=== PATIENT | male | born 1990 | race Caucasian/White ===

== ENCOUNTER 2019-01-02 07:29 | Emergency (ER) | payer BC, SELFPAY ==
[2019-01-02] MEDS ORDERED: Ondansetron ODT 4 MG TAB ONE (07:59)
== END 2019-01-02 08:06 | disposition home or self-care (01) ==
LOC: MADERS 07:29
DX: K52.9 Noninfective gastroenteritis and colitis, unspecified (principal); R11.2 Nausea with vomiting, unspecified; F17.210 Nicotine dependence, cigarettes, uncomplicated; F17.220 Nicotine dependence, chewing tobacco, uncomplicated; Z71.6 Tobacco abuse counseling
CPT/HCPCS: 99406; Q0162

== ENCOUNTER 2019-03-12 18:54 | Emergency (ER) | payer SELFPAY ==
[2019-03-12] MEDS ORDERED: Bacitracin Zinc 1 Packet ONE (19:30)
[2019-03-12] MEDS ORDERED: Adacel (T-DAP) 0.5 ML SYRINGE ONE (19:30)
== END 2019-03-12 20:00 | disposition home or self-care (01) ==
LOC: MADERS 18:54
DX: S61.212A Laceration without foreign body of right middle finger without damage to nail, initial encounter (principal); Z23 Encounter for immunization; F17.220 Nicotine dependence, chewing tobacco, uncomplicated; W26.8XXA Contact with other sharp object(s), not elsewhere classified, initial encounter; Y92.69 Other specified industrial and construction area as the place of occurrence of the external cause
CPT/HCPCS: 12001; 90471; 90715

== ENCOUNTER 2019-06-30 07:36 | Emergency (ER) | payer SELFPAY ==
[2019-06-30] MEDS ORDERED: Lidocaine Viscous Sol 2% 15 ml UD Cup ONE (08:28)
[2019-06-30] MEDS ORDERED: Mag-Al Plus 1200 MG/1200 MG/120 MG/30 ML UDCUP ONE (08:28)
[2019-06-30 08:53] LABS: #Eosinphils 0.3 thou/uL (0.0-0.7); #Lymphocytes 1.6 thou/uL (1.20-3.40); #Monocytes 0.6 thou/uL (0.11-0.59); %Basophils 0.7 % (0.0-1.0); %Eosinophils 4.4 % (0.0-10.0); %Monocytes 9.4 % (0.0-10.0); %Neutrophils 61.5 % (42.0-75.0); Hemoglobin 14.9 g/dL (14.0-18.0); Mean Corpuscular HGB CONC 33.2 g/dL (32.0-36.0); Mean Corpuscular Hemoglobin 28.8 pg (27.0-31.0); Mean Corpuscular Volume 86.7 fL (78.0-98.0); Mean Platelet Volume 6.8 fL (7.4-10.4); Platelet Count 167 thou/uL (130-400); RBC Distribution Width 11.8 % (11.5-14.5); Red Blood Cell (RBC) Count 5.17 mill/uL (4.70-6.10); White Blood Cell (WBC) Count 6.6 thou/uL (4.8-10.8)
[2019-06-30 09:11] LABS: ALT (SGPT) 22 U/L (8-55); AST (SGOT) 15 U/L (5-34); Albumin 4.3 g/dL (3.5-5.0); Alkaline Phosphatase 94 U/L (40-150); Anion Gap 14 mmol/L (10-20); BUN (Urea Nitrogen) 12 mg/dL (8.9-20.6); Bilirubin, Total 0.9 mg/dL (0.2-1.2); Calc. Creatinine Clearance 0 mL/min (70-130); Calcium 9.1 mg/dL (7.8-10.44); Carbon Dioxide 24 mmol/L (22-29); Chloride 106 mmol/L (98-107); Estimated GFR-MDRD Greater than 90; Globulin 2.4 g/dL (2.4-3.5); Glucose 92 mg/dL (70-105); Potassium 3.9 mmol/L (3.5-5.1); Protein, Total 6.7 g/dL (6.0-8.3); Sodium 140 mmol/L (136-145)
--- NOTE | 2019-06-30 10:42 | RAD ---
ACUTE ABDOMINAL SERIES: INDICATION: Acute indigestion with epigastric pain and melena. FINDINGS: No free air is seen beneath the hemidiaphragms. The lungs are clear. Cardiac silhouette is within n ormal limits of size. Bowel gas pattern is nonobstructed. Calcifications are seen overlying the pel vis bilaterally not further characterized. Mild osseous degenerative change is seen. IMPRESSION: No acute abnormality visualized. POS: [facility]
== END 2019-06-30 10:05 | disposition home or self-care (01) ==
LOC: MADERS 07:36
DX: K29.00 Acute gastritis without bleeding (principal); K92.1 Melena; F17.210 Nicotine dependence, cigarettes, uncomplicated; F17.220 Nicotine dependence, chewing tobacco, uncomplicated
CPT/HCPCS: 74022; 80053; 82274; 85025; 99284

== ENCOUNTER 2020-12-30 09:19 | Emergency (ER) | payer SELFPAY | END 2020-12-30 10:11 | disposition home or self-care (01) | LOC: MADERS 09:19 | DX: R43.8 Other disturbances of smell and taste (principal); Z20.822 Contact with and (suspected) exposure to COVID-19; F17.220 Nicotine dependence, chewing tobacco, uncomplicated | CPT/HCPCS: 99283 ==

== ENCOUNTER 2022-05-31 07:23 | Emergency (ER) | payer SELFPAY ==
[2022-05-31] MEDS ORDERED: Sucralfate 1 GM TAB ONE (07:52)
== END 2022-05-31 08:05 | disposition home or self-care (01) ==
LOC: MADERS 07:23
DX: K29.00 Acute gastritis without bleeding (principal); F17.220 Nicotine dependence, chewing tobacco, uncomplicated
CPT/HCPCS: 99283